=== PATIENT | male | born 1940 ===

== ENCOUNTER → 2023-08-21 07:26 | Outpatient (REF) | payer MEDICARE, OTHER, SELFPAY | LOC: RAD 07:26 | PROVIDERS: ATTENDING PHYSICIAN Physician Assistant | DX: M25.572 Pain in left ankle and joints of left foot (principal) | CPT/HCPCS: 73610 ==

== ENCOUNTER → 2023-10-25 14:02 | Outpatient (REF) | payer MEDICARE, OTHER, SELFPAY | LOC: RCS 14:02 | PROVIDERS: ATTENDING PHYSICIAN Internal Medicine Cardiovascular Disease; FAMILY PHYSICIAN Internal Medicine | DX: I50.32 Chronic diastolic (congestive) heart failure (principal); Z79.01 Long term (current) use of anticoagulants | CPT/HCPCS: 93306 ==